=== PATIENT | female | born 1950 | race Caucasian/White ===

== ENCOUNTER 2017-06-25 07:40 | Outpatient (CLI) | payer MEDICARE, OTHER ==
--- NOTE | 2017-06-25 09:29 | MMO ---
BILATERAL DIGITAL SCREENING MAMMOGRAMS: Comparison: 05-21-16, 02-24-15 FINDINGS: This study is interpreted with the assistance of computer aided detection. There are scattered linear densities. No suspicious mass or calcification or architectural distortio n identified. IMPRESSION: BIRADS 1 - negative. Recommend annual screening. POS: [facility]
== END 2017-06-25 07:41 | disposition home or self-care (01) ==
LOC: SCSMAMMO 07:40
PROVIDERS: ATTEND Family Medicine
DX: Z12.31 Encounter for screening mammogram for malignant neoplasm of breast (principal)
CPT/HCPCS: 77067; G0202

== ENCOUNTER 2017-09-16 10:33 | Outpatient (CLI) | payer MEDICARE, OTHER ==
--- NOTE | 2017-09-16 11:03 | RAD ---
CHEST TWO VIEWS: History: Dyspnea. Comparison: 02-16-12 FINDINGS: Cardiac silhouette and pulmonary vasculature are unremarkable. Lungs are hyperinflated. Mediastinum i s midline with aortic calcification. There is no confluent airspace consolidation, pneumothorax, or p leural fluid evident. IMPRESSION: 1. COPD. 2. Atherosclerosis. POS: [facility]
== END 2017-09-16 10:34 | disposition home or self-care (01) ==
LOC: RAD 10:33
PROVIDERS: ATTEND Internal Medicine Pulmonary Disease
DX: R06.00 Dyspnea, unspecified (principal)
CPT/HCPCS: 71046

== ENCOUNTER 2018-06-26 11:46 | Outpatient (CLI) | payer MEDICARE, OTHER | END 2018-06-26 11:47 | disposition home or self-care (01) | LOC: BICMAMMO 11:46 | PROVIDERS: ATTEND Family Medicine | DX: Z12.31 Encounter for screening mammogram for malignant neoplasm of breast (principal) | CPT/HCPCS: 77063; 77067 ==

== ENCOUNTER 2018-10-13 08:28 | Outpatient (CLI) | payer MEDICARE, OTHER ==
--- NOTE | 2018-10-13 09:23 | RAD ---
TWO VIEW CHEST: History: Dyspnea. Comparison: 09-16-17 FINDINGS: The lung damon remain clear. Vascular markings normal. Heart and mediastinum unremarkable. Mild aort ic calcification is seen. The osseous structures are unremarkable with mild degenerative spine change which appear stable. IMPRESSION: Unremarkable chest. No change from prior exam. POS: [facility]
== END 2018-10-13 08:29 | disposition home or self-care (01) ==
LOC: RAD 08:28
PROVIDERS: ATTEND Internal Medicine Pulmonary Disease
DX: R06.00 Dyspnea, unspecified (principal)
CPT/HCPCS: 71046

== ENCOUNTER 2019-06-28 10:07 | Outpatient (CLI) | payer MEDICARE, OTHER ==
--- NOTE | 2019-06-28 13:00 | BD ---
DEXA BONE MINERAL DENSITY STUDY: HISTORY: Postmenopausal screening. COMPARISON: Exam from 2016. FINDINGS: LUMBAR SPINE BMD (g/cm2) T-SCORE Z-SCORE L1 0.977 -0.1 1.7 L2 1.182 1.4 3.4 L3 1.376 2.7 4.8 L4 1.270 1.9 4.1 TOTAL 1.211 1.5 3.5 The change from the comparison examination is +0.4%. BMD (g/cm2) T-SCORE Z-SCORE LEFT FEMORAL NECK 0.612 -2.1 -0.4 TOTAL 0.795 -1.2 0.2 The change from the baseline examination is -0.2%. WHO CLASSIFICATION: Osteopenia. TEN YEAR FRACTURE RISK: Major osteoporotic fracture: 13% Hip fracture: 4% IMPRESSION: Osteopenia with fracture risk as above. POS: [facility]
--- NOTE | 2019-06-28 13:47 | MMO ---
Bilateral MAMMO Bilat Screen [facility]. CLINICAL HISTORY: Patient is 68 years old and is seen for screening. The patient has no family history of breast cancer. The patient has no personal history of cancer. VIEWS: The views performed were: bilateral craniocaudal with tomosynthesis and bilateral mediolateral oblique with tomosynthesis. FILMS COMPARED: The present examination has been compared to a prior imaging study performed at [facility] on 06/26/2018. This study has been interpreted with the assistance of computer-aided detection. MAMMOGRAM FINDINGS: There are scattered fibroglandular densities. There are no suspicious masses, suspicious calcifications, or new areas of architectural distortion. IMPRESSION: THERE IS NO MAMMOGRAPHIC EVIDENCE OF MALIGNANCY. A ROUTINE FOLLOW-UP MAMMOGRAM IN 1 YEAR IS RECOMMENDED. THE RESULTS OF THIS EXAM WERE SENT TO THE PATIENT. ACR BI-RADS Category 1 - Negative MAMMOGRAPHY NOTE: 1. A negative mammogram report should not delay a biopsy if a dominant of clinically suspicious mass is present. 2. Approximately 10% to 15% of breast cancers are not detected by mammography. 3. Adenosis and dense breasts may obscure an underlying neoplasm. Reported by: HEATHER WELLINGTON MD Electonically Signed: [id number]
== END 2019-06-28 10:08 | disposition home or self-care (01) ==
LOC: BICMAMMO 10:07
PROVIDERS: ATTEND Family Medicine
DX: Z12.31 Encounter for screening mammogram for malignant neoplasm of breast (principal); Z13.820 Encounter for screening for osteoporosis; M85.852 Other specified disorders of bone density and structure, left thigh; Z78.0 Asymptomatic menopausal state
CPT/HCPCS: 77063; 77067; 77080

== ENCOUNTER 2020-02-17 10:00 | Outpatient (CLI) | payer MEDICARE, OTHER ==
--- NOTE | 2020-02-17 11:32 | RAD ---
PA AND LATERAL VIEWS CHEST: Date: 02/17/2020 HISTORY: Dyspnea. COMPARISON: 09/16/2017. FINDINGS: Changes of COPD are again seen. The heart size is normal. The aorta is tortuous. No focal areas of co nsolidation, pneumothoraces, or pleural effusions are identified. There are degenerative changes in t he spine. IMPRESSION: Stable exam. No acute process. POS: [facility]
== END 2020-02-17 10:01 | disposition home or self-care (01) ==
LOC: BICRAD 10:00
PROVIDERS: ATTEND Internal Medicine Pulmonary Disease
DX: R06.00 Dyspnea, unspecified (principal)
CPT/HCPCS: 71046

== ENCOUNTER 2020-07-04 08:21 | Outpatient (CLI) | payer MEDICARE, OTHER ==
--- NOTE | 2020-07-04 09:34 | MMO ---
Bilateral MAMMO Bilat Screen [facility]. CLINICAL HISTORY: Patient is 69 years old and is seen for screening. The patient has no family history of breast cancer. The patient has no personal history of cancer. VIEWS: The views performed were: bilateral craniocaudal with tomosynthesis and bilateral mediolateral oblique with tomosynthesis. FILMS COMPARED: The present examination has been compared to prior imaging studies performed at [facility] on 07/26/2017, and at [facility] on 05/21/2016, 06/26/2018 and 06/28/2019. This study has been interpreted with the assistance of computer-aided detection. MAMMOGRAM FINDINGS: There are scattered fibroglandular densities. There are no suspicious masses, suspicious calcifications, or new areas of architectural distortion. IMPRESSION: THERE IS NO MAMMOGRAPHIC EVIDENCE OF MALIGNANCY. A ROUTINE FOLLOW-UP MAMMOGRAM IN 1 YEAR IS RECOMMENDED. THE RESULTS OF THIS EXAM WERE SENT TO THE PATIENT. ACR BI-RADS Category 1 - Negative MAMMOGRAPHY NOTE: 1. A negative mammogram report should not delay a biopsy if a dominant of clinically suspicious mass is present. 2. Approximately 10% to 15% of breast cancers are not detected by mammography. 3. Adenosis and dense breasts may obscure an underlying neoplasm. Reported by: JONNIE GILMAN MD Electonically Signed: [id number]
== END 2020-07-04 08:22 | disposition home or self-care (01) ==
LOC: BICMAMMO 08:21
PROVIDERS: ATTEND Family Medicine
DX: Z12.31 Encounter for screening mammogram for malignant neoplasm of breast (principal)
CPT/HCPCS: 77063; 77067

== ENCOUNTER 2021-02-13 09:45 | Outpatient (CLI) | payer MEDICARE, OTHER | END 2021-02-13 09:46 | disposition home or self-care (01) | LOC: BICRAD 09:45 | PROVIDERS: ATTEND Internal Medicine Pulmonary Disease | DX: R06.09 Other forms of dyspnea (principal) | CPT/HCPCS: 71046 ==

== ENCOUNTER 2021-07-05 08:39 | Outpatient (CLI) | payer MEDICARE, OTHER | END 2021-07-05 08:40 | disposition home or self-care (01) | LOC: BICMAMMO 08:39 | PROVIDERS: ATTEND Family Medicine | DX: Z12.31 Encounter for screening mammogram for malignant neoplasm of breast (principal) | CPT/HCPCS: 77063; 77067 ==

== ENCOUNTER 2022-01-31 09:29 | Outpatient (CLI) | payer MEDICARE, OTHER | END 2022-01-31 09:30 | disposition home or self-care (01) | LOC: RAD 09:29 | PROVIDERS: ATTEND Internal Medicine Critical Care Medicine | DX: R06.00 Dyspnea, unspecified (principal) | CPT/HCPCS: 71046 ==

== ENCOUNTER 2022-07-08 08:37 | Outpatient (CLI) | payer MEDICARE, OTHER | END 2022-07-08 08:38 | disposition home or self-care (01) | LOC: BICMAMMO 08:37 | PROVIDERS: ATTEND Family Medicine | DX: Z12.31 Encounter for screening mammogram for malignant neoplasm of breast (principal) | CPT/HCPCS: 77063; 77067 ==

== ENCOUNTER 2022-10-22 08:29 | Outpatient (CLI) | payer MEDICARE, OTHER | END 2022-10-22 08:30 | disposition home or self-care (01) | LOC: BICRAD 08:29 | PROVIDERS: ATTEND Family Medicine | DX: M54.2 Cervicalgia (principal); M47.812 Spondylosis without myelopathy or radiculopathy, cervical region | CPT/HCPCS: 72040 ==

== ENCOUNTER 2023-04-10 10:26 | Outpatient (CLI) | payer MEDICARE, OTHER | END 2023-04-10 10:27 | disposition home or self-care (01) | LOC: RAD 10:26 | PROVIDERS: ATTEND Internal Medicine Critical Care Medicine | DX: R06.00 Dyspnea, unspecified (principal) | CPT/HCPCS: 71046 ==

== ENCOUNTER 2023-05-15 06:09 | Day surgery (SDC) | payer MEDICARE, OTHER ==
[2023-05-14 14:17] VITALS: BMI 21.4
[2023-05-15] MEDS ORDERED: PROPOFOL 200 MG/20 ML VIAL ONE (09:52)
[2023-05-15] MEDS ORDERED: Lidocaine 1% PF 5 ML VIAL ONE (09:52)
== END 2023-05-15 11:11 | disposition home or self-care (01) ==
LOC: SDC 06:09
PROVIDERS: ATTEND Internal Medicine
PROC: 0DDE8ZX Extraction of Large Intestine, Via Natural or Artificial Opening Endoscopic, Diagnostic (ICD-10-PCS; principal; 2023-05-15)
DX: Z12.11 Encounter for screening for malignant neoplasm of colon (principal); K57.30 Diverticulosis of large intestine without perforation or abscess without bleeding; K52.832 Lymphocytic colitis; I25.10 Atherosclerotic heart disease of native coronary artery without angina pectoris; J44.9 Chronic obstructive pulmonary disease, unspecified; Z90.710 Acquired absence of both cervix and uterus; Z90.49 Acquired absence of other specified parts of digestive tract; F17.210 Nicotine dependence, cigarettes, uncomplicated; Z91.018 Allergy to other foods; Z88.5 Allergy status to narcotic agent; Z30.2 Encounter for sterilization; Z79.899 Other long term (current) drug therapy
CPT/HCPCS: 88305; J2704

== ENCOUNTER 2023-07-29 08:35 | Outpatient (CLI) | payer MEDICARE, OTHER | END 2023-07-29 08:36 | disposition home or self-care (01) | LOC: BICMAMMO 08:35 | PROVIDERS: ATTEND Family Medicine | DX: Z12.31 Encounter for screening mammogram for malignant neoplasm of breast (principal) | CPT/HCPCS: 77063; 77067 ==

== ENCOUNTER 2024-01-07 08:27 | Outpatient (CLI) | payer MEDICARE, OTHER | END 2024-01-07 08:28 | disposition home or self-care (01) | LOC: BICMAMMO 08:27 | PROVIDERS: ATTEND Family Medicine | DX: Z13.820 Encounter for screening for osteoporosis (principal); M85.851 Other specified disorders of bone density and structure, right thigh; M85.852 Other specified disorders of bone density and structure, left thigh; Z78.0 Asymptomatic menopausal state | CPT/HCPCS: 77080 ==

== ENCOUNTER 2024-03-18 15:04 | Outpatient (CLI) | payer MEDICARE, OTHER ==
[2024-03-18 16:34] LABS: #Eosinphils 0.13 10x3/uL (0.0-0.5); #Monocytes 0.62 10x3/uL (0.0-1.1); %Eosinophils 1.4 % (0.0-6.0); %Lymphocytes 24.6 % (18.0-47.0); %Monocytes 6.5 % (0.0-10.0); Hematocrit 42.6 % (34.9-44.5); Mean Corpuscular HGB CONC 35.2 g/dL (32.0-36.0); Mean Corpuscular Hemoglobin 33.5 pg (27.0-33.0); Mean Corpuscular Volume 95.1 fL (81.6-98.3); Mean Platelet Volume 9.5 fL (7.4-10.4); Platelet Count 304 10x3/uL (150-450); RBC Distribution Width 13.8 % (11.5-14.5); Red Blood Cell (RBC) Count 4.48 10x6/uL (3.90-5.03); White Blood Cell (WBC) Count 9.6 10x3/uL (3.5-10.5)
[2024-03-18 16:57] LABS: Anion Gap 13 mmol/L (10-20); BUN (Urea Nitrogen) 9 mg/dL (9.8-20.1); Calc. Creatinine Clearance 0 mL/min (70-130); Calcium 10.5 mg/dL (7.8-10.44); Carbon Dioxide 28 mmol/L (23-31); Chloride 101 mmol/L (98-107); Estimated GFR 74; Glucose 104 mg/dL (83-110); Potassium 4.3 mmol/L (3.5-5.1); Sodium 138 mmol/L (136-145)
== END 2024-03-18 15:05 | disposition home or self-care (01) ==
LOC: LABBT 15:04
PROVIDERS: ATTEND Internal Medicine Cardiovascular Disease
DX: Z01.812 Encounter for preprocedural laboratory examination (principal)
CPT/HCPCS: 80048; 85025

== ENCOUNTER 2024-03-19 05:31 | Day surgery (SDC) | payer MEDICARE, OTHER ==
[2024-03-18 16:05] VITALS: BMI 23.0
[~2024-03-19 05:31] MED LIST: Iopamidol 370 76% 100 ML VIAL ONE
[2024-03-19] MEDS ORDERED: Midazolam HCl 2 mg/2 ml Vial ONE (06:24)
[2024-03-19] MEDS ORDERED: Verapamil 5 MG/2 ML VIAL ONE (06:24)
[2024-03-19] MEDS ORDERED: fentaNYL 50 mcg/mL 1 mL Vial ONE (06:24)
[2024-03-19] MEDS ORDERED: Heparin 10,000 UNITS/ 10 ML VIAL ONE (06:24)
[2024-03-19] MEDS ORDERED: Adenosine 6 mg (2 mL) VIAL ONE (06:24)
[2024-03-19] MEDS ORDERED: Nitroglycerin 50 MG/250 ML BOT 0 ML ONE (06:25)
[2024-03-19] MEDS ORDERED: Lidocaine 1% (PF) 30 ML VIAL ONE (06:25)
[2024-03-19] MEDS ORDERED: Atropine Sulfate 1 mg/10 ml Syringe ONE (07:09)
[2024-03-19] MEDS ORDERED: Iopamidol 370 76% 100 ML VIAL ONE (10:02)
== END 2024-03-19 13:02 | disposition home or self-care (01) ==
LOC: SDC 05:31
PROVIDERS: ATTEND Internal Medicine Cardiovascular Disease
PROC: 4A023N6 Measurement of Cardiac Sampling and Pressure, Right Heart, Percutaneous Approach (ICD-10-PCS; principal; 2024-03-19)
DX: I35.0 Nonrheumatic aortic (valve) stenosis (principal); I25.10 Atherosclerotic heart disease of native coronary artery without angina pectoris; J44.9 Chronic obstructive pulmonary disease, unspecified; E78.5 Hyperlipidemia, unspecified; M19.90 Unspecified osteoarthritis, unspecified site; I47.19 Other supraventricular tachycardia; F17.210 Nicotine dependence, cigarettes, uncomplicated; Z79.51 Long term (current) use of inhaled steroids; Z79.01 Long term (current) use of anticoagulants; Z79.899 Other long term (current) drug therapy; Z88.5 Allergy status to narcotic agent; Z88.8 Allergy status to other drugs, medicaments and biological substances; Z91.018 Allergy to other foods; Z98.890 Other specified postprocedural states; Z90.710 Acquired absence of both cervix and uterus; Z96.652 Presence of left artificial knee joint; Z90.89 Acquired absence of other organs; Z90.49 Acquired absence of other specified parts of digestive tract
CPT/HCPCS: 93460; C1751; C1769 ×3; C1894 ×2; J2001; J2250; J3010; 99152; 99153; J0153; J0461; J1644; Q9967

== ENCOUNTER 2024-06-15 08:10 | Outpatient (CLI) | payer MEDICARE, OTHER | END 2024-06-15 08:11 | disposition home or self-care (01) | LOC: RAD 08:10 | PROVIDERS: ATTEND Internal Medicine Critical Care Medicine | DX: R06.00 Dyspnea, unspecified (principal); J98.11 Atelectasis; J98.4 Other disorders of lung; I70.0 Atherosclerosis of aorta; I51.7 Cardiomegaly; M47.814 Spondylosis without myelopathy or radiculopathy, thoracic region | CPT/HCPCS: 71046 ==

== ENCOUNTER 2024-08-05 08:30 | Outpatient (CLI) | payer MEDICARE, OTHER | END 2024-08-05 08:31 | disposition home or self-care (01) | LOC: BICMAMMO 08:30 | PROVIDERS: ATTEND Family Medicine | DX: Z12.31 Encounter for screening mammogram for malignant neoplasm of breast (principal) | CPT/HCPCS: 77063; 77067 ==

== ENCOUNTER 2025-08-05 13:39 | Outpatient (CLI) | payer MEDICARE, OTHER | END 2025-08-05 13:40 | disposition home or self-care (01) | LOC: BICCT 13:39 | PROVIDERS: ATTEND Internal Medicine Critical Care Medicine | DX: R91.8 Other nonspecific abnormal finding of lung field (principal) | CPT/HCPCS: 71250 ==

== ENCOUNTER 2025-08-11 13:52 | Outpatient (CLI) | payer MEDICARE, OTHER | END 2025-08-11 13:53 | disposition home or self-care (01) | LOC: BICMAMMO 13:52 | PROVIDERS: ATTEND Family Medicine | DX: Z12.31 Encounter for screening mammogram for malignant neoplasm of breast (principal); Z85.820 Personal history of malignant melanoma of skin | CPT/HCPCS: 77063; 77067 ==